=== PATIENT | female | born 2000 | race African-American/Black ===

== ENCOUNTER 2021-03-16 23:49 | Inpatient (IN) ==
[2021-03-17] MEDS ORDERED: LACTATED RINGERS 500 ML IV PRN (00:05)
[2021-03-17] MEDS ORDERED: OXYTOCIN/LR 20 UNIT/1,000 ML BAG IV PRN (00:05)
[2021-03-17] MEDS ORDERED: OXYTOCIN/LR 30 UNIT/1,000 ML BAG IV PRN (00:08)
[2021-03-17 01:05] LABS: Basophils % 0.4 % (0.0-0.8); Eosinophils # 0.1 10*3/uL (0.0-0.87); Eosinophils % 0.6 % (0.00-10.9); Hematocrit 29.5 VOL% (35.7-47.0); Immature Granulocytes % 4.4 %; Immature Granulocytes Absolute 0.48 #; Lymphocytes # 1.5 10*3/uL (1.4-4.0); Mean Corpuscular HGB Conc 30.5 GM/DL (32-36); Mean Corpuscular Volume 81.5 FL (87-102); Mean Platelet Volume 12.9 FL (9.6-12.0); Monocytes % 9.4 % (1.7-12.7); NRBC # 0.09 10*3/uL; Neutrophils % 71.2 % (38.7-73.9); Platelet Count 186 T/CUMM (130-400); Red Blood Count 3.62 MC/CUMM (3.8-5.5); White Blood Count 10.9 T/CUMM (4-12)
[2021-03-17 01:24] LABS: Alanine Aminotransferase 12 U/L (13-56); Albumin 2.4 G/DL (3.4-5.0); Alkaline Phosphatase 321 U/L (45-117); Aspartate Amino Transferase 17 U/L (0-37); Bilirubin,Total < 0.39 MG/DL (0.20-1.00); Blood Urea Nitrogen 7 MG/DL (7-18); Calcium 9.4 MG/DL (8.5-10.1); Carbon Dioxide 23 MMOL/L (21-32); Estimated Glom Filtration Rate 170 ML/MIN; Glucose 102 MG/DL (74-106); Osmolality,Calculated 270.8 MOS/KG (273-304); Sodium 137 MMOL/L (136-145); Total Protein 7.2 G/DL (6.4-8.2)
[2021-03-17 02:08] LABS: Band Neutrophils 2 % (0-10); Lymphocytes 16 % (20-55); Segmented Neutrophils 74 % (50-85); Total Cells Counted 100
[2021-03-17 02:09] LABS: Hypochromia 2+; Platelet Estimate Normal; Polychromasia Few
[2021-03-17 02:10] LABS: Stomatocytes Few
[2021-03-17] MEDS: LACTATED RINGERS 1,000 ML IV SCH ×3 (09:10→20:51)
[2021-03-17] MEDS: BUTORPHANOL 2 MG/ML VIAL IV PRN ×2 (10:46→15:23)
[2021-03-17] MEDS: ONDANSETRON 4 MG/2 ML VIAL IV PRN ×2 (13:23→19:15)
[2021-03-17] MEDS: MEPERIDINE 50 MG/1 ML VIAL IV PRN ×2 (13:24→19:15)
[2021-03-17 14:23] LABS: HIV Antigen/Antibody Result Nonreactive (Nonreactive)
[2021-03-17] MEDS ORDERED: hydrOXYzine HCL 25 MG/1 ML VIAL IM PRN (19:47)
[2021-03-17] MEDS ORDERED: ePHEDrine 50 MG/ML VIAL IV PRN (19:47)
[2021-03-17] MEDS ORDERED: PROMETHAZINE 25 MG/1 ML VIAL IM ONE (19:47)
[2021-03-17] MEDS ORDERED: CITRIC ACID/SODIUM CITRATE 30 ML UDCUP PO ONE (19:47)
[2021-03-17] MEDS ORDERED: NALOXONE 0.4 MG/ML VIAL IV PRN (19:47)
[2021-03-17] MEDS ORDERED: FAMOTIDINE 20 MG/2 ML VIAL IV ONE (19:47)
[2021-03-17] MEDS ORDERED: diphenhydrAMINE 50 MG/1 ML VIAL IV PRN ×2 (19:47)
[2021-03-17] MEDS ORDERED: fentaNYL 2 MCG/ROPIV 0.2% EPID 100 ML EPIDURAL SCH (20:00)
[2021-03-17] MEDS ORDERED: AMPICILLIN INJ 2,000 MG in SODIUM CHLORIDE 0.9% 100 ML IV SCH (20:00)
[2021-03-17 23:38] LABS: Bacteria,Urine Occasional /HPF (Few); Bilirubin,Urine Negative (Negative); Blood, Urine Negative (Negative); Glucose,Urine (UA) Negative (Negative); Ketones,Urine Negative (Negative); Nitrite,Urine Negative (Negative); Protein,Urine 30 MG/DL; RBC,Urine 1 /HPF (0-4); Urine Appearance CLEAR (Clear); Urine Color Straw (Yellow); Urine Specific Gravity 1.006 (1.001-1.035); Urine Urobilinogen < 2.0 EU/DL (<2.0)
[2021-03-18] MEDS ORDERED: AMPICILLIN INJ 2,000 MG in SODIUM CHLORIDE 0.9% 100 ML IV SCH
[2021-03-18] MEDS ORDERED: SODIUM CHLORIDE 0.9% 0 ML IV ONE (01:44)
[2021-03-18] MEDS ORDERED: miSOPROStoL 200 MCG TABLET ONE (01:44)
[2021-03-18] MEDS ORDERED: TRANEXAMIC ACID 1,000 MG/10 ML VIAL ONE (01:44)
[2021-03-18] MEDS ORDERED: CARBOPROST TROMETHAMINE 250 MCG/ML AMP IM ONE (01:45)
[2021-03-18] MEDS ORDERED: METHYLERGONOVINE 0.2 MG/1 ML AMP ONE (01:45)
[2021-03-18 03:11] LABS: Cord Arterial Blood HCO3 21.9 MMOL/L
[2021-03-18 03:15] LABS: Cord Venous Blood HCO3 23.9 MMOL/L; Cord Venous Blood PCO2 54.6 MMHG; Cord Venous Blood PO2 19.7
[2021-03-18] MEDS ORDERED: MEASLES/MUMPS/RUBELLA VACCINE 0.5 ML VIAL SUBCUT ONE (04:49)
[2021-03-18] MEDS ORDERED: oxyCODONE/ACETAMINOPHEN 5-325 MG TABLET PO PRN (04:49)
[2021-03-18] MEDS ORDERED: DIPH/TET/ACEL PERT BOOSTER VACCINE 0.5 ML VIAL IM ONE (04:49)
[2021-03-18] MEDS ORDERED: RHO(D) IMMUNE GLOBULIN 300 MCG SYRINGE IM ONE (04:49)
[2021-03-18] MEDS ORDERED: WITCH HAZEL PADS 100/JAR TOP PRN (04:49)
[2021-03-18] MEDS ORDERED: BISACODYL 10 MG SUPP RECTAL PRN (04:49)
[2021-03-18] MEDS ORDERED: ACETAMINOPHEN 325 MG TABLET PO PRN (04:49)
[2021-03-18] MEDS ORDERED: OXYTOCIN/LR 20 UNIT/1,000 ML BAG IV ONE (04:49)
[2021-03-18] MEDS ORDERED: ONDANSETRON 4 MG/2 ML VIAL IV PRN (04:49)
[2021-03-18] MEDS ORDERED: LANOLIN 50% CREAM 0.3 OZ TUBE TOP PRN (04:49)
[2021-03-18] MEDS ORDERED: HYDROCORTISONE 2.5% RECTAL CREAM 30 GM TUBE TOP PRN (04:49)
[2021-03-18] MEDS: oxyCODONE/ACETAMINOPHEN 5-325 MG TABLET PO PRN ×2 (06:30→18:30)
[2021-03-18] MEDS: IBUPROFEN 800 MG TABLET PO PRN ×2 (07:37→21:28)
[2021-03-18] MEDS: BENZOCAINE 20%/MENTHOL 0.5% SPRAY 56 GM CAN TOP PRN ×2 (07:38→13:57)
[2021-03-18] MEDS ORDERED: NIFEdipine 10 MG CAPSULE PO ONE (09:10)
[2021-03-18] MEDS: DOCUSATE SODIUM 100 MG CAPSULE PO SCH ×2 (10:50→21:28)
[2021-03-18] MEDS: FERROUS SULFATE 325 MG TABLET PO SCH (21:28)
[2021-03-19] MEDS: IBUPROFEN 800 MG TABLET PO PRN (04:08)
[2021-03-19 05:27] LABS: Basophils % 0.3 % (0.0-0.8); Eosinophils # 0.2 10*3/uL (0.0-0.87); Hematocrit 27.2 VOL% (35.7-47.0); Hemoglobin 8.4 GM/DL (12.0-16.0); Immature Granulocytes % 2.7 %; Immature Granulocytes Absolute 0.32 #; Lymphocytes # 1.6 10*3/uL (1.4-4.0); Lymphocytes % 13.7 % (21.3-54.2); Mean Corpuscular HGB Conc 30.9 GM/DL (32-36); Mean Corpuscular Volume 81.9 FL (87-102); Monocytes % 8.6 % (1.7-12.7); NRBC # 0.03 10*3/uL; Neutrophils % 72.7 % (38.7-73.9); Platelet Count 160 T/CUMM (130-400); Red Blood Count 3.32 MC/CUMM (3.8-5.5); Red Cell Distribution Width 17.2 % (9.3-17.3); White Blood Count 11.7 T/CUMM (4-12)
[2021-03-19 06:01] LABS: Band Neutrophils 5 % (0-10); Eosinophils 2 % (0-10); Lymphocytes 15 % (20-55); Metamyelocytes 1 %; Segmented Neutrophils 75 % (50-85); Total Cells Counted 100
[2021-03-19 06:02] LABS: Hypochromia 2+; Macrocytosis Slight; Platelet Estimate Normal
[2021-03-19] MEDS: DOCUSATE SODIUM 100 MG CAPSULE PO SCH (08:51)
[2021-03-19] MEDS: FERROUS SULFATE 325 MG TABLET PO SCH (08:53)
[2021-03-19 09:42] VITALS: BP 140/65
== END 2021-03-19 16:25 | disposition home or self-care (01) | DRG 560 ==
LOC: N.LD 23:49 → N.OB 03-18 10:48
PROVIDERS: ADMIT Obstetrics & Gynecology; ATTEND Obstetrics & Gynecology